=== PATIENT | female | born 1955 | race Caucasian/White ===

== ENCOUNTER 2021-08-08 10:44 | Outpatient (REF) | payer MEDICARE, SELFPAY ==
--- NOTE | ~2021-08-08 | XR_ITS ---
EXAMINATION: X-RAY BILATERAL KNEES CLINICAL INFORMATION: Knee pain COMPARISON: None TECHNIQUE: Each 4 views FINDINGS: Left knee: No fracture or dislocation. Normal alignment. Joint spaces are maintained. Small sclerotic focus in the medial femoral condyle, probable bone island. Small suprapatellar joint fluid. Right knee: No fracture or dislocation. Normal alignment. Joint spaces are maintained. Small suprapatellar joint fluid. Vascular calcification. XR/XR knee LT 4V IMPRESSION: No acute osseous abnormality
--- NOTE | ~2021-08-08 | XR_ITS ---
EXAMINATION: X-RAY BILATERAL KNEES CLINICAL INFORMATION: Knee pain COMPARISON: None TECHNIQUE: Each 4 views FINDINGS: Left knee: No fracture or dislocation. Normal alignment. Joint spaces are maintained. Small sclerotic focus in the medial femoral condyle, probable bone island. Small suprapatellar joint fluid. Right knee: No fracture or dislocation. Normal alignment. Joint spaces are maintained. Small suprapatellar joint fluid. Vascular calcification. XR/XR knee RT 4V IMPRESSION: No acute osseous abnormality
--- NOTE | ~2021-08-08 | MM_ITS ---
EXAMINATION: MM SCREENING DIGITAL BREAST TOMOSYNTHESIS, BILATERAL CLINICAL INFORMATION: Screening. Asymptomatic. The lifetime risk of breast cancer based on the Tyrer-Cuzick Model is 2.1%. COMPARISON: Mammography: August 08, 2021 and studies dating back to January 25, 2018 TECHNIQUE: Digital breast tomosynthesis is performed in both the craniocaudal and mediolateral oblique views along with computer-aided detection (CAD). Synthesized 2D images are generated from the tomosynthesis. FINDINGS: There are scattered areas of fibroglandular density (ACR BI-RADS breast composition Category b). There are no significant masses, abnormal calcifications, or other abnormalities. MM/MM tomosynthesis screening BI IMPRESSION: There are no significant changes from prior study. ASSESSMENT: BI-RADS 1: Negative RECOMMENDATION: Routine annual mammography screening. This patient's information was entered into a reminder system with a target due date for their next mammogram.
--- NOTE | ~2021-08-08 | XR_ITS ---
EXAMINATION: XR HIP, RIGHT CLINICAL INFORMATION: Hip pain COMPARISON: None TECHNIQUE: Pelvis 2 views. Right hip 2 views. FINDINGS: Right hip: Normal alignment. Mild axial joint space loss.. No fracture or dislocation. Pelvis: Normal alignment of the left hip joint, with mild axial joint space loss. No fracture or dislocation. The pelvic ring is intact. SI joints, symphysis pubis intact. No acute pelvic fractures seen. Chronic appearing calcification in the right gluteal soft tissue. Mild degeneration in the visualized lower lumbar spine. XR/XR hip RT min 2V IMPRESSION: Mild bilateral hip joint arthritis.
== END 2021-08-08 10:45 | disposition home or self-care (01) ==
LOC: HO.MAMMO 10:44
PROVIDERS: PCP Nurse Practitioner Adult Health; Visit Provider Nurse Practitioner Adult Health
DX: Z12.31 Encounter for screening mammogram for malignant neoplasm of breast (principal); M25.561 Pain in right knee; M25.562 Pain in left knee; M25.551 Pain in right hip
CPT/HCPCS: 73502; 73564; 77063; 77067

== ENCOUNTER 2022-08-14 10:54 | Outpatient (REF) | payer MEDICARE, SELFPAY ==
--- NOTE | ~2022-08-14 | MM_ITS ---
EXAMINATION: MM SCREENING DIGITAL BREAST TOMOSYNTHESIS, BILATERAL CLINICAL INFORMATION: Screening. Asymptomatic. Previous breast reduction surgery. The lifetime risk of breast cancer based on the Tyrer-Cuzick Model is 2.2%. COMPARISON: Mammography: 08/08/2021 and studies dating back to 01/25/2018. TECHNIQUE: Digital breast tomosynthesis is performed in both the craniocaudal and mediolateral oblique views along with computer-aided detection (CAD). Synthesized 2D images are generated from the tomosynthesis. FINDINGS: There are scattered areas of fibroglandular density (ACR BI-RADS breast composition Category b). This is a baseline study status post bilateral breast reduction surgery. Post-surgical changes seen bilaterally. No suspicious masses appreciated. No suspicious grouping of microcalcifications noted. MM/MM tomosynthesis screening BI IMPRESSION: Post-surgical change bilaterally from breast reduction surgery. ASSESSMENT: BI-RADS 2: Benign. RECOMMENDATION: Routine annual mammography screening. This patient's information was entered into a reminder system with a target due date for their next mammogram.
== END 2022-08-14 10:55 | disposition home or self-care (01) ==
LOC: HO.MAMMO 10:54
PROVIDERS: PCP Internal Medicine; Visit Provider Internal Medicine
DX: Z12.31 Encounter for screening mammogram for malignant neoplasm of breast (principal)
CPT/HCPCS: 77063; 77067

== ENCOUNTER 2023-08-20 10:35 | Outpatient (REF) | payer MEDICARE, SELFPAY ==
--- NOTE | ~2023-08-20 | MM_ITS ---
EXAMINATION: MM SCREENING DIGITAL BREAST TOMOSYNTHESIS, BILATERAL CLINICAL INFORMATION: Screening. Asymptomatic. The patient has history of prior breast reduction. The reduction surgery took place sometime after the 2021 screening mammogram. COMPARISON: Mammography: This study is compared with prior exams dating back to TECHNIQUE: Digital breast tomosynthesis is performed in both the craniocaudal and mediolateral oblique views along with computer-aided detection (CAD). Synthesized 2D images are generated from the tomosynthesis. FINDINGS: There are scattered areas of fibroglandular density (ACR BI-RADS breast composition Category b). Post reduction changes are present in each breast. There is a focal asymmetry in the upper outer quadrant of the left breast at its deep third. Additional mammographic and targeted sonographic imaging of this region is advised. In the right breast, there are no significant masses, abnormal calcifications, or other abnormalities. MM/MM tomosynthesis screening BI IMPRESSION: Focal asymmetry of the left breast warrants additional mammographic and targeted sonographic imaging. No mammographic signs of malignancy right breast. Bilateral post reduction changes. ASSESSMENT: BI-RADS BI-RADS 0 - Incomplete: Needs additional Imaging. RECOMMENDATION: 1. Additional views of the left breast. 2. Targeted ultrasound if warranted after review of the additional views. 3. Radiology department staff will contact the patient for additional imaging. Additional Imaging required This examination should not preclude the clinical evaluation of a suspicious palpable abnormality. This patient's information was entered into a reminder system with a target due date for their next mammogram.
== END 2023-08-20 10:36 | disposition home or self-care (01) ==
LOC: HO.MAMMO 10:35
PROVIDERS: PCP Family Medicine; Visit Provider Family Medicine
DX: Z12.31 Encounter for screening mammogram for malignant neoplasm of breast (principal)
CPT/HCPCS: 77063; 77067

== ENCOUNTER → 2023-08-20 11:00 | Outpatient (BNV) | payer MEDICARE, SELFPAY | PROVIDERS: PCP Family Medicine; Visit Provider Radiology Diagnostic Radiology | DX: Z12.31 Encounter for screening mammogram for malignant neoplasm of breast (principal) | CPT/HCPCS: 77063; 77067 ==

== ENCOUNTER 2023-09-09 14:21 | Outpatient (REF) | payer MEDICARE, SELFPAY ==
--- NOTE | ~2023-09-09 | MM_ITS ---
EXAMINATION: MM DIAGNOSTIC DIGITAL BREAST TOMOSYNTHESIS, LEFT US BREAST LIMITED, LEFT MAMMOGRAPHY: CLINICAL INFORMATION: Callback for focal asymmetry left breast upper outer quadrant, deep one third. Of note, patient has had a 2021 bilateral breast reduction, with revision breast reduction performed 10/07/2022, and six-month later had a fat transfusion in the left outer breast, completely changing breast architecture and baseline appearance. COMPARISON: Mammography: New Baseline 08/20/2023 (revision breast reduction with fat packing laterally), 08/14/2022, 08/08/2021 (with breast reduction occurring before this mammogram), and dating back to 2018. TECHNIQUE: Digital breast tomosynthesis is performed in the following views: 3-D spot compression left CC and left MLO views. Targeted left breast ultrasound was to follow. FINDINGS: There are scattered areas of fibroglandular density (ACR BI-RADS breast composition Category b). Breast parenchyma has taken on a new appearance after the second reduction revision, with dense central posterior scarring in the left breast both in the CC and MLO projections, which persists on spot compression views without significant changes. A few associated benign appearing calcifications are also present, most likely representing dystrophic calcifications. There is expected scarring with distortion in both breasts. This represents a new baseline. ULTRASOUND: CLINICAL INFORMATION: As above. COMPARISON: None TECHNIQUE: Targeted left breast sonographic evaluation was performed using a high frequency linear transducer. Attention was given to the central region of focal architectural distortion. Selected archived documentation. FINDINGS: LEFT BREAST: Spanning the 1:00 to 4:00 regions, approximately 3 cm to 4 cm from the nipple, left breast, there is a region of irregular spiculated hypoechoic echogenicity measuring approximately 4.7 x 1.5 x 3.6 cm, with no associated color Doppler flow. This is the expected appearance of benign scar tissue. Given no increased vascular flow on color Doppler, is not suspicious in the setting of 2 prior surgeries. There are no suspicious masses, abnormal regions of shadowing, or cystic abnormalities. MM/MM tomosynthesis added views L IMPRESSION: There are no findings suspicious for malignancy in the left breast. Area of focal asymmetry/distortion is most consistent with postoperative scarring in the central left breast. This will serve as the patient's new baseline. We will follow this in 6 months with mammography to ensure stability. OVERALL ASSESSMENT: Mammography: BI-RADS 3 - Probably benign finding(s) - 6 month follow-up suggested Ultrasound: BI-RADS 3 - Probably benign finding(s) - 6 month follow-up suggested RECOMMENDATION: 6 Month F/U This patient's information was entered into a reminder system with a target due date for their next mammogram.
== END 2023-09-09 14:22 | disposition home or self-care (01) ==
LOC: HO.MAMMO 14:21
PROVIDERS: PCP Family Medicine; Visit Provider Family Medicine
DX: N64.89 Other specified disorders of breast (principal)
CPT/HCPCS: 76642; 77061; 77065

== ENCOUNTER → 2023-09-09 14:30 | Outpatient (BNV) | payer MEDICARE, SELFPAY | PROVIDERS: PCP Family Medicine; Visit Provider Radiology Diagnostic Radiology | DX: N63.21 Unspecified lump in the left breast, upper outer quadrant (principal) | CPT/HCPCS: 76642; 77065; G0279 ==

== ENCOUNTER 2023-10-14 11:42 | Outpatient (AMB) | payer MEDICARE, SELFPAY ==
--- NOTE | 2023-10-14 11:52 | MHC.PC.OV ---
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 Intake Note: Patient is here as a new patient, would like refills on her meds, Gabapentin 400mg TID, and also Butabital 50/325/40mg Allergies codeine Adverse Reaction (Intermediate, Verified 10/14/23 12:00) stomach pains Medication List - Last Reconciled 10/14/23 by Jayden Webber MD ascorbic acid (vitamin C) 125 mg PO DAILY boron citrate mg PO cod liver oil 1 cap PO DAILY liver extract tabs PO magnesium 120 mg PO TID phytonadione (vitamin K1) 1 mg PO DAILY vitamin E (dl, acetate) 450 mg PO DAILY Tobacco use date assessed: 10/14/23 Fall risk assessment: No Falls in past year Last assessed Fall Risk: 10/14/23 Dental Screening Dental Screen Date: 10/14/23 Did you have a dental visit in the last 12 months?: Yes Did you have a dental problem in the last 6 months where you did not have access to dental care?: No Was dental information given to patient?: 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 ?? Prior PCP:? [facility] [place] [facility] [place] Last office visit/CPE:? Fall 2022, Acute issue(s):? Gabapentin RLS b/L legs 400mg BID H/A's and?has?used?Fioricet?with?good?affect ?? PMHx:?RLS, Headaches. Depression/anxiety - resolved. SurgHx:?Bilateral breast reduction, abdominoplasty, right rotator cuff repair, Chalo-en-Y gastric bypass, hysterectomy, tubal ligation. FHx:? Mom: Bipolar Manic depression, Alzheimers, HTN. Dad: CAD, CT, DM, HTN. Uncle: Brain CA. Cousin GI Cancer. SocHx: Quit Cigs 1995. EtoH rare: 5 gl wine in a yr. No drugs PFSH Medical History (Updated 10/14/23 @ 12:45 by Jayden Webber MD) Other ovarian cyst, right side Surgical History (Updated 10/14/23 @ 12:20 by Keila Wiggins CMA) S/P bilateral breast reduction H/O cystoscopy H/O abdominoplasty S/P right rotator cuff repair History of Chalo-en-Y gastric bypass H/O: hysterectomy H/O tubal ligation Family History (Updated 10/14/23 @ 12:25 by Keila Wiggins CMA) Mother Alzheimers disease Mental health disorder Father Diabetes Amputated right leg Sister Amputation of leg Maternal Grandmother Heart attack Brother Substance abuse in family Mental health disorder Social History Housing: House Patient Tobacco Use Status: Former Tobacco user (quit 30 years ago) e-Cigarette/Vaping Use: Never Used service: No Current occupational status: retired Cognitive needs: No Hearing needs: No Vision needs: Yes (reading glasses) Questionnaire PHQ-9 Over the last 2 weeks, how often have you been bothered by any of the following problems? 1. Little interest or pleasure in doing things: not at all 2. Feeling down, depressed, or hopeless: not at all 3. Trouble falling or staying asleep, or sleeping too much: not at all 4. Feeling tired or having little energy: not at all 5. Poor appetite or overeating: not at all 6. Feeling bad about yourself - or that you are a failure or have let yourself or your family down: not at all 7. Trouble concentrating on things, such as reading the newspaper or watching television: not at all 8. Moving or speaking so slowly that other people could have noticed. Or the opposite - being so fidgety or restless that you have been moving around a lot more than usual: not at all 9. Thoughts that you would be better off or of hurting yourself in some way: not at all Total score: 0 Depression Screening Interpretation: Negative Depression Screening Done: Yes 14373 - PHQ-9 Billing: Yes Source: Developed by Drs. Rafael Bang, Zaira Palacios, Anival Evans and colleagues, with an educational zita from [employer]. Thrive Questionnaire Date Thrive assessed: 10/14/23 I am a: Patient What is your living situation today?: I have a steady place to live Within the past 12 months, did the food you bought not last and you didn't have the money to get more?: Never true Within the past 12 months, did you worry whether your food would run out before you got money to buy more?: Never true Do you have trouble paying for medicines?: No Do you have trouble getting transportation to medical appointments?: No Do you have trouble paying your heating and electricity bill?: No Do you have trouble taking care of your child, family member or friend?: No Do you have trouble with day-to-day activities such as bathing, preparing meals, shopping, managing finances, etc.?: No Are you currently unemployed and looking for a job?: No Are you interested in more education?: No THRIVE Score: 0 AUDIT C Alcohol Use Questionnaire (AUDIT-C) 1. How often do you have a drink containing alcohol?: Monthly or less 2. How many drinks containing alcohol do you have on a typical day when you are drinking?: 1 or 2 3. How often do you have six or more drinks on one occasion?: Never Total Score: 1 YASH-7 AMB Questionnaire YASH-7 Date YASH - 7 assessed: 10/14/23 Feeling nervous, anxious, or on edge: 0 = Not at all Not being able to stop or control worryin = Not at all Worrying too much about different things: 0 = Not at all Trouble relaxin = Not at all Being so restless that it is hard to sit still: 0 = Not at all Becoming easily annoyed or irritable: 0 = Not at all Feeling afraid as if something awful might happen: 0 = Not at all Total YASH-7 score (0-4 normal; 5-9 mild; 10-14 moderate; 15-21 severe): 0 Source: Developed by Drs. Rafael Bang, Zaira Palacios, Anival Evans and colleagues, with an educational zita from [employer]. YASH-7 Assessment Billing YASH-7 Assessment Tool: YASH-7 Assessment 41918 Physical exam (Primary Care) BMI result Body Mass Index 28.3 Depression Screening Interpretation: Negative Assessment and Plan Assessment & Plan (1) Restless leg syndrome: Code(s): G25.81 - Restless legs syndrome Plan: Uses?gabapentin Will?refill?this (2) Chronic headaches: Code(s): R51.9 - Headache, unspecified; G89.29 - Other chronic pain Plan: Has?used?Fioricet?in?the?past?with?good?affect We?can?continue?this.??Advised?patient?that?frequent?long-term?use?can?cause?rebound?headaches?so?she?will?use?intermittently,?only?as?needed. Will?also?check?some?inflammatory?markers (3) Laboratory exam ordered as part of routine general medical examination: Code(s): Z00.00 - Encounter for general adult medical examination without abnormal findings Plan: Check?labs Orders: Orders Comprehensive [place]. Panel Fast Today Z00.00 - Encounter for general adult medical examination without abnormal findings TSH reflex Free T4 Today Z00.00 - Encounter for general adult medical examination without abnormal findings Erythrocyte Sedimentation Rate Today R51.9 - Headache, unspecified Complete Blood Count Auto Diff Today Z00.00 - Encounter for general adult medical examination without abnormal findings Microalbumin, Random (w Creat) Today I10 - Essential (primary) hypertension Lipid Panel Today Z00.00 - Encounter for general adult medical examination without abnormal findings UA and rflx microscopic Today Z00.00 - Encounter for general adult medical examination without abnormal findings CRP High Sensitivity Today R51.9 - Headache, unspecified Medications: New qurawdvjum-sxyjgbktmkecb-noen 50-300-40 mg (Fioricet) #15 caps per 30 days 1 cap PO .Q12 30 days PRN 15 caps 0RF pain gabapentin 400 mg PO TID 30 days 90 caps 1RF Coding Level of Care Code New Pt Level 3 (43018) Diagnoses Restless leg syndrome G25.81 Chronic headaches R51.9; G89.29 Laboratory exam ordered as part of routine general medical examination Z00.00 Additional Codes YASH-7 Assessment Billing - YASH-7 Assessment Tool: YASH-7 Assessment 41243 ([id number])
[2023-10-14 11:56] VITALS: BP 118/62; PULSE 68; O2SAT 97; BMI 28.3
== END 2023-10-14 12:44 | disposition home or self-care (01) ==
PROVIDERS: PCP Family Medicine; Visit Provider Family Medicine
DX: G25.81 Restless legs syndrome (principal); R51.9 Headache, unspecified; G89.29 Other chronic pain
CPT/HCPCS: 99203

== ENCOUNTER 2023-12-29 09:13 | Outpatient (REF) | payer MEDICARE, SELFPAY ==
[2023-12-29 11:11] LABS: MANUAL DIFF FLAG NO
[2023-12-29 11:18] LABS: Basophils Percent Auto 0.8 % (0-2); Eosinophils Absolute Auto 0.2 X10*3/uL (0.0-0.4); Eosinophils Percent Auto 2.8 % (0-4); Hemoglobin 14.6 g/dl (12.0-16.0); Imm Gran Abs Auto 0.02 X10*3/uL (0.00-0.03); Imm Gran Pct Auto 0.4 % (0.0-0.4); Lymphocytes Absolute Auto 2.4 X10*3/uL (1.2-4.9); Lymphocytes Percent Auto 46.3 % (20-40); Mean Corpuscular Hemoglobin 31.8 pg (27.0-33.0); Mean Corpuscular Volume 93.7 fL (80.0-98.0); Monocytes Absolute Auto 0.4 X10*3/uL (0.1-1.2); Monocytes Percent Auto 8.3 % (2-11); Neutrophils Absolute Auto 2.2 x10*3/uL (2.0-8.3); Neutrophils Percent Auto 41.4 % (45-73); Platelet Count 245 X10*3/uL (160-400); Red Blood Count 4.59 X10*6/uL (4.20-5.50); Red Cell Distribution Width 11.9 % (11.0-16.0); White Blood Count 5.3 X10*3/uL (4.8-10.8)
[2023-12-29 12:02] LABS: Alanine Aminotransferase 35 U/L (0-31); Albumin Level 4.5 g/dL (3.5-5.0); Alkaline Phosphatase 97 U/L (39-117); Anion Gap 15 (12-20); Aspartate Amino Transferase 28 U/L (5-31); Bilirubin Total 0.4 mg/dL (0.0-1.0); Blood Urea Nitrogen 12 mg/dL (9-16); Carbon Dioxide 25 mmol/L (22-29); Chloride 106 mmol/L (96-108); Cholesterol 257 mg/dL (<200); Estimated Glomerular Filt Rate > 60; Glucose Fasting 83 mg/dL (60-99); HDL Cholesterol 50 mg/dL (>40); LDL Cholesterol Calculated 163 mg/dL (<100); Potassium 4.1 mmol/L (3.3-5.1); Sodium 142 mmol/L (135-145); Total Protein 7.7 g/dL (6.5-8.0); Triglycerides 222 mg/dL (<150)
[2023-12-29 12:08] LABS: TSH reflex Free T4 2.64 uIU/mL (0.32-4.0)
[2023-12-29 12:10] LABS: Erythrocyte Sedimentation Rate 10 MM/HR (0-20)
[2023-12-29 14:13] LABS: Appearance Urine Cloudy; Color Urine Yellow; Glucose Urine UA Negative (Negative); Leukocyte Esterase Urine Moderate (2+) (Negative); Nitrite Urine Negative (Negative); PH 5.5 (5.0-9.0); Specific Gravity - Urine >= 1.030 (1.005-1.025); UMIC TRIGGER UA YES; Urine Blood Negative (Negative); Urine Ketones Trace mg/dL (Negative); Urine Protein Trace mg/dL (Neg-Trace)
[2023-12-29 14:24] LABS: Bacteria Urine 1+ (None Seen); Hyaline Casts Urine 0-2 /LPF (0-2); RBC Urine 0-2 /HPF (0-2)
[2023-12-29 15:35] LABS: Creatinine Urine 234.06 mg/dL; Microalbum/Creatinine Ratio Ur 8.5 ug/mg cr (<30)
[2023-12-30 08:53] LABS: CRP High Sensitivity 1.2 mg/L
== END 2023-12-29 09:14 | disposition home or self-care (01) ==
LOC: HO.WFDLDS 09:13
PROVIDERS: Visit Provider Family Medicine
DX: Z00.00 Encounter for general adult medical examination without abnormal findings (principal); R51.9 Headache, unspecified; I10 Essential (primary) hypertension
CPT/HCPCS: 36415; 80053; 80061; 81001; 82043; 82570; 84443; 85025; 85652; 86141

== ENCOUNTER 2023-12-31 10:39 | Outpatient (AMB) | payer MEDICARE, SELFPAY ==
--- NOTE | 2023-12-31 10:44 | A.OFFPC_ITS ---
Vital Signs 12/31/23 10:54 Height 5 ft 2 in Weight 157 lb BMI 28.7 BP 102/72 Blood Pressure Location Lt brachial Position Sitting Respiration 12 Pulse 81 Pulse Source Pulse Oximeter Pulse Oximetry (%) 97 Oxygen Delivery Method Room Air Intake Visit Reasons: Extended exam with f/u labs and health maint. Intake Note: Follow up. Needs refill on Fioricet to be changed to 325. The 300 does not work, and ends up needing to take two pills which she doesn't like to do. Also, needs refill on Gabapentin. She would like a three month supply. 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 Allergies codeine Adverse Reaction (Intermediate, Verified 12/31/23 10:52) stomach pains Medication List - Last Reconciled 12/31/23 by Alicia Altman PA-C ascorbic acid (vitamin C) 125 mg PO DAILY boron citrate mg PO cod liver oil 1 cap PO DAILY gabapentin 400 mg PO TID 90 days liver extract tabs PO magnesium 200 mg PO TID phytonadione (vitamin K1) 1 mg PO DAILY vitamin E (dl, acetate) 450 mg PO DAILY Tobacco use date assessed: 10/14/23 Fall risk assessment: No Falls in past year Last assessed Fall Risk: 12/31/23 Dental Screening Dental Screen Date: 12/31/23 Did you have a dental visit in the last 12 months?: Yes Did you have a dental problem in the last 6 months where you did not have access to dental care?: No Was dental information given to patient?: Patient has dentist HPI Extended exam with f/u labs and health maint. HPI Details Pt is a 68 y/o female who presents today for a cpe. CV: bp wnl. labs noted to have hyperlipidemia wants to treat with diet. 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 She is against statins, tried in the past with side effects. Neuro: has a hx of headaches and uses fioricet. RLS treated with gabapentin 400 TID Mammo-UTD Bone density- osteopenia- 2 years ago Cologuard- last year in 2022- wnl [employer]- 2019, states done - s/p total hysterectomy 35 yeras ago. no fam hx of colon cancer PFSH Medical History (Updated 12/31/23 @ 11:43 by Alicia Altman PA-C) Other ovarian cyst, right side Surgical History (Updated 10/14/23 @ 12:20 by Keila Wiggins [facility]) S/P bilateral breast reduction H/O cystoscopy H/O abdominoplasty S/P right rotator cuff repair History of [place]-en-Y gastric bypass H/O: hysterectomy H/O tubal ligation Family History (Updated 10/14/23 @ 12:25 by Keila Wiggins [facility]) Mother Alzheimers disease Mental health disorder Father Diabetes Amputated right leg Sister Amputation of leg Maternal Grandmother Heart attack Brother Substance abuse in family Mental health disorder Social History Housing: House Patient Tobacco Use Status: Former Tobacco user (quit 30 years ago) e-Cigarette/Vaping Use: Never Used service: No Current occupational status: retired Cognitive needs: No Hearing needs: No Vision needs: Yes (reading glasses) Questionnaire PHQ-9 Over the last 2 weeks, how often have you been bothered by any of the following problems? 1. Little interest or pleasure in doing things: not at all 2. Feeling down, depressed, or hopeless: not at all 3. Trouble falling or staying asleep, or sleeping too much: not at all 4. Feeling tired or having little energy: not at all 5. Poor appetite or overeating: not at all 6. Feeling bad about yourself - or that you are a failure or have let yourself or your family down: not at all 7. Trouble concentrating on things, such as reading the newspaper or watching television: not at all 8. Moving or speaking so slowly that other people could have noticed. Or the opposite - being so fidgety or restless that you have been moving around a lot more than usual: not at all 9. Thoughts that you would be better off or of hurting yourself in some way: not at all Total score: 0 Depression Screening Interpretation: Negative Depression Screening Done: Yes 88052 - PHQ-9 Billing: Yes Source: Developed by Drs. Rafael Bang, Zaira Palacios, Anival Evans and colleagues, with an educational zita from [employer]. Thrive Questionnaire Date Thrive assessed: 12/31/23 I am a: Patient What is your living situation today?: I have a steady place to live Within the past 12 months, did the food you bought not last and you didn't have the money to get more?: Never true Within the past 12 months, did you worry whether your food would run out before you got money to buy more?: Never true Do you have trouble paying for medicines?: No Do you have trouble getting transportation to medical appointments?: No Do you have trouble paying your heating and electricity bill?: No Do you have trouble taking care of your child, family member or friend?: No Do you have trouble with day-to-day activities such as bathing, preparing meals, shopping, managing finances, etc.?: No Are you currently unemployed and looking for a job?: No Are you interested in more education?: No Please select the resources that you would like help with: None Currently or been in a relationship where the following occur: No concerns reported THRIVE Score: 0 AUDIT C Alcohol Use Questionnaire (AUDIT-C) 1. How often do you have a drink containing alcohol?: Never Total Score: 0 YASH-7 AMB Questionnaire YASH-7 Date YASH - 7 assessed: 10/14/23 Source: Developed by Drs. Rafael Bang, Zaira Palacios, Anival Evasn and colleagues, with an educational zita from [employer]. Physical exam (Primary Care) Vital Signs: Last Vital Signs Pulse 81 12/31/23 10:54 Resp 12 12/31/23 10:54 BP 102/72 12/31/23 10:54 Pulse Ox 97 12/31/23 10:54 Oxygen Delivery Method Room Air 12/31/23 10:54 BMI result Body Mass Index 28.7 Tobacco/Smoking Status: Tobacco use Status Tobacco use date assessed 10/14/23 12/31/23 10:45 Patient Tobacco Use Status Former Tobacco user (quit 30 12/31/23 10:45 years ago) e-Cigarette/Vaping Use Never Used 12/31/23 10:45 PHQ-9: PHQ-9 Score PHQ-9: Total score 0 12/31/23 11:03 Depression Screening Interpretation: Negative Thrive Assessment: Date of Thrive Assessment Date Thrive assessed 12/31/23 12/31/23 10:45 Currently or been in a relationship where the following occur: No concerns reported Const Orientation/consciousness: patient oriented x3 HENMT Ears: hearing grossly normal bilaterally and TM's normal bilaterally General nose exam: No nasal polyps present Face and sinus: Yes sinuses nontender Mouth: Normal oral and palatal mucosa present Eyes Pupils: Equal, round and reactive pupils present EOM: EOMs intact bilaterally Neck Neck: Yes full ROM and Yes no lymphadenopathy Thyroid: Thyroid normal Chest Chest palpation & inspection: normal inspection of the chest and normal palpation of entire chest wall Breast/axilla inspection: normal inspection of the breasts and normal inspection of the axillae Breast/axilla palpation: normal palpation of the breasts, normal palpation of the axillae and no axillary lymphadenopathy Resp Auscultation: clear to auscultation bilaterally Cardio Rate: regular rate Rhythm: regular rhythm Heart sounds: S1 normal heart sound present and S2 normal heart sound present Peripheral pulses: Peripheral pulses 2+ throughout GI Other: Soft, nontender Auscultation: normal bowel sounds Rectal Exam - Female: deferred General: Yes no CVA tenderness Back/Spine/Pelvis Other: Nontender Back: no CVA tenderness Skin General skin exam: no rashes or lesions noted Neuro General: patient oriented x3, gait normal, CN's II-XI intact bilaterally and deep tendon reflexes 2+ bilaterally Cranial nerves: Yes Equal, round and reactive pupils present Motor exam (neuro): 5/5 motor strength present throughout Sensory Exam: double simultaneous stimulation for sensation normal Coordination: cjegaf-ho-uiry test normal and Romberg test negative Extrem General: Yes normal to inspection and Yes full ROM Psych Affect: normal affect Attitude: cooperative Thought process: Normal thought process present Thought content: Normal thought content present Insight: Good insight present (Psych) Judgement: Good judgement present (Psych) Results Reviewed Results Reviewed: Laboratory Tests 12/29/23 09:15 WBC 5.3 RBC 4.59 Hgb 14.6 Plt Count 245 Sodium 142 Potassium 4.1 Chloride 106 Carbon Dioxide 25 Creatinine 0.76 Estimated GFR > 60 Fasting Glucose 83 Calcium 10.0 AST 28 ALT 35 H Triglycerides 222 H Cholesterol 257 H LDL Cholesterol, Calc 163 H HDL Cholesterol 50 TSH 2.64 Assessment and Plan Assessment & Plan (1) Routine general medical examination at a health care facility: Code(s): Z00.00 - Encounter for general adult medical examination without abnormal findings Plan: reviewed labs reviewed bone density ordered (2) Chronic headaches: Code(s): R51.9 - Headache, unspecified; G89.29 - Other chronic pain Qualifiers: Headache type: unspecified Intractability: not intractable Qualified Code(s): R51.9 - Headache, unspecified; G89.29 - Other chronic pain Plan: has been worked up in the past fioricet ordered (3) Restless leg syndrome: Code(s): G25.81 - Restless legs syndrome Plan: continue gabapentin (4) Osteopenia after menopause: Code(s): M85.80 - Other specified disorders of bone density and structure, unspecified site; Z78.0 - Asymptomatic menopausal state Plan: bone density ordered (5) Dyslipidemia: Code(s): E78.5 - Hyperlipidemia, unspecified Plan: recheck lipids in 6 months or sooner prn. Orders: Orders XR DEXA axial skeleton Today Z78.0 - Asymptomatic menopausal state Medications: New nopmrdimqq-kdaxyjzjznjnf-vmvi 50-325-40 mg 1 tab PO Q6H PRN 30 tabs 5RF pain Changed From gabapentin 400 mg PO TID 30 days 90 caps 1RF To gabapentin 400 mg PO TID 90 days 270 caps 3RF Discontinued onyunzxwbr-gyacgczdgavpn-hfra 50-300-40 mg (Fioricet) #15 caps per 30 days Discontinued Reason: Doctor's Order 1 cap PO .Q12 30 days PRN 15 caps 0RF pain Coding Level of Care Code Est Pt Prev Care >65y(76775) Diagnoses Routine general medical examination at a health care facility Z00.00 Chronic nonintractable headache, unspecified headache type R51.9; G89.29 Headache type: unspecified Intractability: not intractable Restless leg syndrome G25.81 Osteopenia after menopause M85.80; Z78.0 Dyslipidemia E78.5
[2023-12-31 10:54] VITALS: BP 102/72; PULSE 81; RESP 12; O2SAT 97; BMI 28.7
== END 2023-12-31 11:41 | disposition home or self-care (01) ==
PROVIDERS: PCP Family Medicine; Visit Provider Physician Assistant
DX: Z00.00 Encounter for general adult medical examination without abnormal findings (principal); R51.9 Headache, unspecified; G89.29 Other chronic pain; G25.81 Restless legs syndrome; M85.80 Other specified disorders of bone density and structure, unspecified site; Z78.0 Asymptomatic menopausal state; E78.5 Hyperlipidemia, unspecified
CPT/HCPCS: 99397

== ENCOUNTER 2024-01-22 10:24 | Outpatient (REF) | payer MEDICARE, SELFPAY ==
--- NOTE | ~2024-01-22 | MM_ITS ---
EXAMINATION: BONE DENSITOMETRY CLINICAL INDICATION: Menopause. COMPARISON: This is the patient's baseline examination. TECHNIQUE: Using a [employer] DXA System (software version: 13.1) manufactured by [employer], dual-energy x-ray absorptiometry was performed of the lumbar spine and left hip. The images are of good technical quality. Summary results are attached. FINDINGS: LEFT FEMUR, NECK: BMD 0.702 g/cm2, Z-score -0.9, T-score -2.4, osteopenia. LEFT FEMUR, TOTAL: BMD 0.716 g/cm2, Z-score -1.1, T-score -2.3, osteopenia. AP SPINE L1-L4: BMD 1.012 g/cm2, Z-score 0.1, T-score -1.4, osteopenia. IDENTIFIED RISK FACTORS: Early menopause, history of fracture (adult), bilateral oophorectomy, hysterectomy, secondary osteoporosis (partial gastrectomy). HISTORY OF FRACTURE: Wrist, elbow. MEDICATIONS: None listed. MM/XR DEXA axial skeleton IMPRESSION: 1. DIAGNOSIS: Osteopenia based on the lowest T-score value of -2.4 in the femoral neck applying World Health Organization criteria. 2. 10-YEAR FRACTURE RISK PREDICTION, FRAX: Major osteoporotic fracture (clinical spine, forearm, hip or shoulder) 21.7%. Hip fracture 4.9%. 3. Treatment Recommendations: NOF guidelines recommend consideration for treatment in postmenopausal women and men age 50 and older presenting with the following: -A hip or vertebral (clinical or morphometric) fracture. -T-score less than or equal to -2.5 at the femoral neck or spine after appropriate evaluation to exclude secondary causes. -Low bone mass at the hip or spine and a 10-year fracture probability by FRAX of greater than or equal to 3% for hip fracture or greater than or equal to 20% for major osteoporotic fracture based on the [place] adapted WHO algorithm. 4. Other Recommendations: All treatment decisions require clinical judgment and consideration of individual patient factors, including patient preferences, comorbidities, previous drug use, risk factors not captured in the FRAX model (e.g. frailty, falls, vitamin D deficiency, increased bone turnover, interval significant decline in bone density) and possible under or overestimation of fracture risk by FRAX. Additional medical evaluation for secondary cause of low bone mineral density may be appropriate. FUTURE SCAN RECOMMENDATION: People with diagnosed cases of osteoporosis or at high risk for fracture should have regular bone mineral density tests. For patients eligible for Medicare, routine testing is allowed once every 2 years. The testing frequency can be increased to one year for patients who have rapidly progressing disease, those who are receiving or discontinuing medical therapy to restore bone mass, or have additional risk factors. Electronically signed by: Rolando Payne MD 02/01/2024 09:15 AM EDT
== END 2024-01-22 10:25 | disposition home or self-care (01) ==
LOC: HO.MAMMO 10:24
PROVIDERS: PCP Family Medicine; Visit Provider Physician Assistant
DX: Z13.820 Encounter for screening for osteoporosis (principal); Z78.0 Asymptomatic menopausal state
CPT/HCPCS: 77080

== ENCOUNTER 2024-03-08 14:49 | Outpatient (REF) | payer MEDICARE, SELFPAY ==
--- NOTE | ~2024-03-08 | MM_ITS ---
EXAMINATION: MM DIAGNOSTIC DIGITAL BREAST TOMOSYNTHESIS, LEFT CLINICAL INFORMATION: Six-month follow-up for left breast asymmetry. As noted previously, patient had a 2021 bilateral breast reduction, with revision breast reduction performed 10/07/2022, and 6 months later had a fat transfusion in the outer left breast. This is a follow-up from baseline. COMPARISON: Mammography: 09/09/2023, New Baseline 08/20/2023 (revision breast reduction with fat packing laterally), 08/14/2022, 08/08/2021 (with breast reduction occurring before this mammogram), and dating back to 2018. TECHNIQUE: Digital breast tomosynthesis is performed in both the craniocaudal and mediolateral oblique views along with computer-aided detection (CAD). Synthesized 2D images are generated from the tomosynthesis. FINDINGS: There are scattered areas of fibroglandular density (ACR BI-RADS breast composition Category b). Left breast parenchyma is stable, with dense central posterior scarring in the both in the CC and MLO projections.A few associated benign appearing calcifications are also present, most likely representing dystrophic calcifications. There has been mild scar retraction since the previous exam, further supporting benignity. MM/MM tomosynthesis diagnostic LT IMPRESSION: -There are no findings suspicious for malignancy left breast. -Asymmetry central posterior left breast is consistent with scarring, and remains probably benign. -Additional 6 month follow-up mammography recommended to ensure stability, when the patient is due for yearly. ASSESSMENT: BI-RADS BI-RADS 3 - Probably benign finding(s) - 6 month follow-up suggested RECOMMENDATION: 6 Month F/U Results were provided to the patient at time of visit by the technologist. This patient's information was entered into a reminder system with a target due date for their next mammogram. Electronically signed by: Mamadou Beaver MD 03/08/2024 03:28 PM [facility]
== END 2024-03-08 14:50 | disposition home or self-care (01) ==
LOC: HO.MAMMO 14:49
PROVIDERS: PCP Physician Assistant; Visit Provider Family Medicine
DX: R92.2 Inconclusive mammogram (principal)
CPT/HCPCS: 77061; 77065

== ENCOUNTER → 2024-03-08 15:00 | Outpatient (BNV) | payer MEDICARE, SELFPAY | PROVIDERS: PCP Physician Assistant; Visit Provider Radiology Diagnostic Radiology | DX: R92.1 Mammographic calcification found on diagnostic imaging of breast (principal); N65.1 Disproportion of reconstructed breast; R92.322 Mammographic fibroglandular density, left breast | CPT/HCPCS: 77065; G0279 ==

== ENCOUNTER 2024-06-30 10:07 | Outpatient (AMB) | payer MEDICARE, SELFPAY ==
--- NOTE | 2024-06-30 10:17 | MHC.PC.OV ---
Vital Signs 06/30/24 10:19 Height 5 ft 2 in Weight 161 lb BMI 29.4 BP 130/84 Blood Pressure Location Lt brachial Position Sitting Pulse 70 Pulse Source Pulse Oximeter Pulse Oximetry (%) 99 Oxygen Delivery Method Room Air Intake Visit Reasons: follow up Intake Note: Follow up. Allergies codeine Adverse Reaction (Intermediate, Verified 06/30/24 10:18) stomach pains Medication List - Last Reconciled 06/30/24 by Alicia Altman PA-C ascorbic acid (vitamin C) 125 mg PO DAILY boron citrate mg PO rzbjxhpjlp-faikwjskntrku-miwm 50-325-40 mg 1 tab PO Q6H PRN cod liver oil 1 cap PO DAILY gabapentin 400 mg PO TID 90 days liver extract tabs PO magnesium 200 mg PO TID phytonadione (vitamin K1) 1 mg PO DAILY Tobacco use date assessed: 10/14/23 Fall risk assessment: No Falls in past year Last assessed Fall Risk: 06/30/24 Dental Screening Dental Screen Date: 12/31/23 HPI follow up HPI Details Pt is a 68 y/o female who presents today for a follow up. CV: bp wnl. labs noted to have hyperlipidemia wants to treat with diet. 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 She is against statins, tried in the past with side effects. Neuro: has a hx of headaches and uses fioricet. RLS treated with gabapentin 400 TID General: she is S/C bariatric surgery and states that she wants is zepbound or Wegovy. She is fine paying xjz-hl-wemnai for this. She is aware of the risks, benefits and adverse effects. No family history of thyroid malignancy. Mammo-UTD, repeat ordered and booked for a couple months out- had breast asymmetry following breast reduction and believes it is related to that. 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 no fam hx of colon cancer PFSH Medical History (Updated 06/30/24 @ 10:53 by Alicia Altman PA-C) Other ovarian cyst, right side Surgical History (Updated 10/14/23 @ 12:20 by Keila Wiggins [facility]) S/P bilateral breast reduction H/O cystoscopy H/O abdominoplasty S/P right rotator cuff repair History of Chalo-en-Y gastric bypass H/O: hysterectomy H/O tubal ligation Family History (Updated 10/14/23 @ 12:25 by Keila Wiggins [facility]) Mother Alzheimers disease Mental health disorder Father Diabetes Amputated right leg Sister Amputation of leg Maternal Grandmother Heart attack Brother Substance abuse in family Mental health disorder Social History Housing: House Patient Tobacco Use Status: Former Tobacco user (quit 30 years ago) e-Cigarette/Vaping Use: Never Used service: No Current occupational status: retired Cognitive needs: No Hearing needs: No Vision needs: Yes (reading glasses) Questionnaire PHQ-9 Over the last 2 weeks, how often have you been bothered by any of the following problems? 2. Feeling down, depressed, or hopeless: not at all 3. Trouble falling or staying asleep, or sleeping too much: several days 4. Feeling tired or having little energy: several days 5. Poor appetite or overeating: several days 6. Feeling bad about yourself - or that you are a failure or have let yourself or your family down: not at all 7. Trouble concentrating on things, such as reading the newspaper or watching television: not at all 8. Moving or speaking so slowly that other people could have noticed. Or the opposite - being so fidgety or restless that you have been moving around a lot more than usual: not at all 9. Thoughts that you would be better off or of hurting yourself in some way: not at all Depression Screening Interpretation: Negative Depression Screening Done: Yes 21132 - PHQ-9 Billing: Yes Source: Developed by Drs. Rafael Bang, Zaira Palacios, Anival Evans and colleagues, with an educational zita from [employer]. Thrive Questionnaire Date Thrive assessed: 06/23/24 I am a: Patient What is your living situation today?: I have a steady place to live Within the past 12 months, did the food you bought not last and you didn't have the money to get more?: Never true Within the past 12 months, did you worry whether your food would run out before you got money to buy more?: Never true Do you have trouble paying for medicines?: No Do you have trouble getting transportation to medical appointments?: No Do you have trouble paying your heating and electricity bill?: No Do you have trouble taking care of your child, family member or friend?: No Do you have trouble with day-to-day activities such as bathing, preparing meals, shopping, managing finances, etc.?: No Are you currently unemployed and looking for a job?: No Are you interested in more education?: No Please select the resources that you would like help with: None Currently or been in a relationship where the following occur: No concerns reported THRIVE Score: 0 AUDIT C Alcohol Use Questionnaire (AUDIT-C) 1. How often do you have a drink containing alcohol?: Monthly or less 2. How many drinks containing alcohol do you have on a typical day when you are drinking?: 1 or 2 3. How often do you have six or more drinks on one occasion?: Never Total Score: 1 YASH-7 AMB Questionnaire YASH-7 Date YASH - 7 assessed: 10/14/23 Feeling nervous, anxious, or on edge: 0 = Not at all Not being able to stop or control worryin = Not at all Worrying too much about different things: 0 = Not at all Trouble relaxin = Not at all Being so restless that it is hard to sit still: 0 = Not at all Becoming easily annoyed or irritable: 0 = Not at all Feeling afraid as if something awful might happen: 0 = Not at all Total YASH-7 score (0-4 normal; 5-9 mild; 10-14 moderate; 15-21 severe): 0 Source: Developed by Drs. Rafael Bang, Zaira Palacios, Anival Evans and colleagues, with an educational zita from [employer]. YASH-7 Assessment Billing YASH-7 Assessment Tool: YASH-7 Assessment 55337 Physical exam (Primary Care) Vital Signs: Last Vital Signs Pulse 70 06/30/24 10:19 BP 130/84 06/30/24 10:19 Pulse Ox 99 06/30/24 10:19 Oxygen Delivery Method Room Air 06/30/24 10:19 BMI result Body Mass Index 29.4 Tobacco/Smoking Status: Tobacco use Status Tobacco use date assessed 10/14/23 06/30/24 10:17 Patient Tobacco Use Status Former Tobacco user (quit 06/30/24 10:17 years ago) e-Cigarette/Vaping Use Never Used 06/30/24 10:17 Depression Screening Interpretation: Negative Thrive Assessment: Date of Thrive Assessment Date Thrive assessed 06/23/24 06/30/24 10:17 Currently or been in a relationship where the following occur: No concerns reported Const Orientation/consciousness: patient oriented x3 HENMT Ears: hearing grossly normal bilaterally Neck Thyroid: Thyroid normal Lymphatic: no lymphadenopathy noted Resp Auscultation: clear to auscultation bilaterally Cardio Rate: regular rate Rhythm: regular rhythm Heart sounds: S1 normal heart sound present and S2 normal heart sound present GI Inspection: Yes normal to inspection Palpation (GI): Soft to palpation and Other GI palpation findings present (nontender, no cva tenderness) Auscultation: normoactive bowel sounds Rectal Exam - Female: deferred Skin General skin exam: no rashes or lesions noted Neuro General: patient oriented x3, gait normal and no focal motor deficits Results Reviewed Results Reviewed: Laboratory Tests 12/29/23 09:15 WBC 5.3 RBC 4.59 Hgb 14.6 Hct 43.0 Plt Count 245 Sodium 142 Potassium 4.1 Chloride 106 Carbon Dioxide 25 Anion Gap 15 BUN 12 Creatinine 0.76 Estimated GFR > 60 Fasting Glucose 83 Calcium 10.0 Total Bilirubin 0.4 AST 28 ALT 35 H Alkaline Phosphatase 97 Total Protein 7.7 Albumin 4.5 Triglycerides 222 H Cholesterol 257 H LDL Cholesterol, Calc 163 H HDL Cholesterol 50 TSH 2.64 MM/XR DEXA axial skeleton IMPRESSION: 1. DIAGNOSIS: Osteopenia based on the lowest T-score value of -2.4 in the femoral neck applying World Health Organization criteria. MM/MM tomosynthesis diagnostic LT IMPRESSION: -There are no findings suspicious for malignancy left breast. -Asymmetry central posterior left breast is consistent with scarring, and remains probably benign. -Additional 6 month follow-up mammography recommended to ensure stability, when the patient is due for yearly. ASSESSMENT: BI-RADS BI-RADS 3 - Probably benign finding(s) - 6 month follow-up suggested RECOMMENDATION: 6 Month F/U Results were provided to the patient at time of visit by the technologist. This patient's information was entered into a reminder system with a target due date for their next mammogram. Coding Level of Care Code Est Pt Level 4 (70758) Complex EM visit Add On G2211 Diagnoses Dyslipidemia E78.5 Overweight (BMI 25.0-29.9) E66.3 Breast asymmetry N64.89 Chronic nonintractable headache, unspecified headache type R51.9; G89.29 Headache type: unspecified Intractability: not intractable Additional Codes PHQ-9 - 33837 - PHQ-9 Billing: Yes ([id number]) YASH-7 Assessment Billing - YASH-7 Assessment Tool: YASH-7 Assessment 21112 ([id number]) Assessment & Plan Assessment & Plan (1) Dyslipidemia: Code(s): E78.5 - Hyperlipidemia, unspecified Category: Medical Plan: Working on diet. Does not tolerate statins. Not interested in taking this. We will monitor closely. (2) Overweight (BMI 25.0-29.9): Code(s): E66.3 - Overweight Category: Medical Plan: zepbound Ordered. Discussed risks and benefits and adverse effects of this medication including nausea, vomiting, pancreatitis increased risk of thyroid malignancy. We will check labs in a few months. (3) Breast asymmetry: Code(s): N64.89 - Other specified disorders of breast Category: Medical Plan: Has follow up scheduled. (4) Chronic headaches: Code(s): R51.9 - Headache, unspecified; G89.29 - Other chronic pain Category: Medical Qualifiers: Headache type: unspecified Intractability: not intractable Qualified Code(s): R51.9 - Headache, unspecified; G89.29 - Other chronic pain Plan: Medications refilled. Stable Orders: Orders Comprehensive [employer] Panel Fast Today E66.3 - Overweight, E78.5 - Hyperlipidemia, unspecified Lipid Panel Today E66.3 - Overweight, E78.5 - Hyperlipidemia, unspecified Medications: New tirzepatide (weight loss) (Zepbound) 2.5 mg (0.5 mL) subcut QWEEK 4 weeks 2 mL 0RF Refilled gykcjwmbtp-ucbiazjmfthoh-dfoj 50-325-40 mg 1 tab PO Q6H PRN 30 tabs 5RF pain
[2024-06-30 10:19] VITALS: BP 130/84; PULSE 70; O2SAT 99; BMI 29.4
--- OUTSIDE RECORDS SUMMARY | 2024-06-30 12:33 | XMS_ITS ---
Author Organization [facility] Address [address] [place] [address] Care Team Providers Care Counselor [employer] Name Role Phone JOHN GARCIA Primary Care Provider [phone] John Garcia Unavailable [phone] REASON FOR VISIT 3 mo follow up Encounters Encounter Location Date Provider Diagnosis [facility] [address] [place] [address] 04/08/2023 JOHN GARCIA Plan Of Treatment No Information Progress Notes * Maribell FINLEY ODOB:1955 (68 yo F)Acc No.[id number]:04/08/2023 Progress Notes Patient:?Maribell FINLEY Provider:?John Garcia MD :1955???Age:67 Y???Sex:Female D ate:04/08/2023 Address:[address] [place], [place] [id number] Subjective: * Chief Complaints: * ???1. 3 mo follow up. * Medical History:? Objective: * Vitals:? Assessment: Plan: * Treatment: * Billing Information: * Visit Code:? * Procedure Codes:? * Electronic signature of KIESHA GARCIA MD on 06/30/2024 at 12:33 PM EDT Sign off status: Pending * Provider:?John Garcia MD Date:?2022 Generated for Printi ng/Faxing/eTransmitting on:?06/30/2024 12:33 PM EDT
--- OUTSIDE RECORDS SUMMARY | 2024-06-30 12:33 | XMS_ITS ---
Author Organization [facility] Address [address] [place] [address] Care Team Providers Care Hha Name Role Phone JOHN GARCIA Primary Care Provider [phone] John Garcia Unavailable [phone] REASON FOR VISIT Continued Care Encounters Encounter Location Date Provider Diagnosis [facility] [address] [place] [address] 03/20/2023 JOHN GARCIA Plan Of Treatment No Information Progress Notes * TUSHARMaria Teresahy ODOB:1955 (67 yo F)Acc No.[id number]:03/20/2023 Patient:?Maribell Lincoln :1955???Age:67 Y???Sex:Female Address:[address] [place] [address], [address] * true * Date:? Generated for Roberti hilario/Kristy/eTransmitting on:?06/30/2024 12:33 PM EDT
--- OUTSIDE RECORDS SUMMARY | 2024-06-30 12:33 | XMS_ITS | Clinical Summary ---
Author Organization [employer] [facility] Address [address] [place] [address] Care Team Providers Care Machine Operator Transplanter Name Role Phone John Garcia MD Primary Care Provider [phone] Allergies Active Allergy Reactions Criticality Noted Date Comments Codeine 08/23/2018 Medications Medication Sig Dispensed Refills Start Date End Date Status gabapentin (NEURONTIN) 400 MG capsule Take 1 capsule (400 mg total) by mouth 2 (two) times a day. 0 Active butalbital-acetaminoph en-caffeine 50-325-40 MG per tablet TAKE 1 TABLET BY MOUTH TWICE A DAY NEEDED FOR 30 DAYS ORALLY 30 DAYS 0 12/25/2022 Active BORON PO 3 mg daily. 0 10/25/2021 Active vitamin k 100 MCG tablet Take 10 tablets (1,000 mcg total) by mouth daily. 0 10/25/2021 Active Vitamin E 100 units TABS Take 750 mg by mouth daily. 0 10/25/2021 Active Ascorbic Acid (vitamin C) 100 MG tablet Take 1.5 tablets (150 mg total) by mouth 2 (two) times a day. 0 10/25/2021 Active Magnesium 100 MG TABS Take 120 mg by mouth 3 (three) times a day. 0 Active Cod Liver Oil OIL Take 3.5 mL by mouth 3 (three) times a day. 0 Active Active Problems Problem Noted Date Diagnosed Date Anemia associated with nutritional deficiency Family History Medical History Relation Name Comments Coronary artery disease Father Diabetes Father DM COMPLICATION S Dementia Mother Relation Name Status Comments Father Mother Social History Tobacco Use Types Packs/Day Years Used Date Smoking Tobacco: Former Smokeless Tobacco: Never Alcohol Use Standard Drinks/Week Comments No 0 (1 standard drink = 0.6 oz pur e alcohol) Sex and Gender Information Value Date Recorded Sex Assigned at Female 01/16/2023 9:37 AM EDT Gender Identity Not on file Sexual Orientation Not on file Job Start Date Occupation Industry Not on file Not on file Not on file Last Filed Vital Signs Vital Sign Reading Time Taken Comments Blood Pressure 139/70 02/19/2023 1:28 PM EDT Pulse 71 02/19/2023 1:28 PM EDT Temperature 36.2 ??C (97.2 ??F) 02/19/2023 1:28 PM ED T Respiratory Rate 18 02/11/2023 1:30 PM EDT Oxygen Saturation 100% 02/19/2023 1:28 PM EDT Inhaled Oxygen Concentration - - Weight 67.6 kg (149 lb) 01/23/2023 2:08 PM EDT Height 157.5 cm (5' 2 ) 08/24/2018 1:44 PM EDT Body Mass Index 27.25 08/24/2018 1:44 PM EDT Plan of Treatment Health Maintenance Due Date Last Done Comments Hepatitis C Screening 1955 COVID-19 Vaccine (#1) 02/15/1956 Depression Screening 1967 Preventative Health Evaluation 08/15/1973 DTap / Tdap / Td (1 - Tdap) 08/15/1974 Colon Cancer Screening (Colonoscopy) 08/15/2000 Breast Cancer Screening (Mammogram) 08/15/2005 Shingrix-Zoster Vaccine (1 of 2) 08/15/2005 Fall Risk Assessment 08/15/2020 Osteoporosis Screening (DEXA Scan) 08/15/2020 Pneumococcal Vaccine (1 of 1 - PCV) 08/15/2020 Influenza Vaccine (#1) 2023 RSV Adult > 60+ Yrs or Pregn ant (1 - 1-dose 75+ series) 08/15/2030 Hepatitis B Vaccines Aged Out No long er eligible based on patient's age to complete this topic RSV Ped < 20 months Aged Out No longe r eligible based on patient's age to complete this topic Care Teams Machine Operator Transplanter Relationship Specialty Start Date End Date John Garcia MD PCP - General Internal Medicine 08/24/18
--- OUTSIDE RECORDS SUMMARY | 2024-06-30 12:33 | XMS_ITS ---
Author Organization [facility] Address [address] [place] [address] Care Team Providers Care Physical Therapy Aid Name Role Phone JOHN GARCIA Primary Care Provider John Garcia Unavailable [phone] REASON FOR VISIT Transfer to [facility] Encounter Location Date Provider Diagnosis [facility] [address] [place] [address] 04/16/2023 JOHN GARCIA Plan Of Treatment No Information Progress Notes * HASMUKHMaribell MOLINA ODOB:1955 (67 yo F)Acc No.[id number]:04/16/2023 Patient:?Maribell Alford :1955???Age:67 Y???Sex:Female Address:[address] [place] [address], [address] * true * Date:? Generated for Roberti hilario/Kristy/eTransmitting on:?06/30/2024 12:33 PM EDT
== END 2024-06-30 10:57 | disposition home or self-care (01) ==
LOC: HO.HMCFM 10:08
PROVIDERS: PCP Family Medicine; Visit Provider Physician Assistant
DX: E78.5 Hyperlipidemia, unspecified (principal); E66.3 Overweight; N64.89 Other specified disorders of breast; R51.9 Headache, unspecified; G89.29 Other chronic pain

== ENCOUNTER → 2024-06-30 10:07 | Outpatient (BNVA) | payer MEDICARE, SELFPAY | PROVIDERS: PCP Family Medicine; Visit Provider Physician Assistant | DX: E78.5 Hyperlipidemia, unspecified (principal); E66.3 Overweight; N64.89 Other specified disorders of breast; R51.9 Headache, unspecified; G89.29 Other chronic pain | CPT/HCPCS: 96127; 99212 ==

== ENCOUNTER 2024-09-07 10:54 | Outpatient (REF) | payer MEDICARE, SELFPAY ==
--- NOTE | ~2024-09-07 | MM_ITS ---
EXAMINATION: MM DIAGNOSTIC DIGITAL BREAST TOMOSYNTHESIS, BILATERAL CLINICAL INFORMATION: 1 year follow-up for focal asymmetry in the upper outer left breast which correlates with the patient's post reduction mammoplasty changes with an additional revision and fat injection. No sonographic abnormality previously was seen. COMPARISON: Mammography: Comparison is made with relevant prior exams. TECHNIQUE: Digital breast mammography with tomosynthesis is performed in both the craniocaudal and mediolateral oblique views along with computer-aided detection (CAD). FINDINGS: There are scattered areas of fibroglandular density (ACR BI-RADS breast composition Category b). Status post bilateral reduction mammoplasty changes. A focal asymmetry in the upper outer left breast is slightly decreased in size from priors and likely representing post reduction mammoplasty changes with an additional revision and fat injection. No suspicious changes are noted. No suspicious calcifications or other abnormal findings. Results are provided to the patient at time of visit by the technologist. MM/MM tomosynthesis diagnostic BI IMPRESSION: Right: Benign. Left: Focal asymmetry in the upper outer breast is slightly decreased in size and not significantly changed from prior dating back for one year. No prior sonographic abnormality was seen. Recommend follow-up in one year when the patient is due for bilateral mammography to demonstrate 2 years of stability ASSESSMENT: BI-RADS BI-RADS 3 - Probably benign finding(s) - 12 month follow-up suggested RECOMMENDATION: 12 month diagnostic follow up This patient's information was entered into a reminder system with a target due date for their next mammogram. Electronically signed by: Yola Jaimes DO 09/07/2024 11:34 AM EDT
--- OUTSIDE RECORDS SUMMARY | 2024-09-07 12:21 | XMS_ITS | Clinical Summary ---
Author Organization [employer] [facility] Address [address] [place] [address] Care Team Providers Care Entry Specialists Name Role Phone John Garcia MD Primary Care Provider [phone] Allergies Active Allergy Reactions Criticality Noted Date [...] age to complete this topic Care Teams Entry Specialists Relationship Specialty Start Date End Date John Garcia MD PCP - General Internal Medicine 08/24/18
== END 2024-09-07 10:55 | disposition home or self-care (01) ==
LOC: HO.MAMMO 10:54
PROVIDERS: PCP Physician Assistant; Visit Provider Physician Assistant
DX: N64.89 Other specified disorders of breast (principal)
CPT/HCPCS: 77062; 77066

== ENCOUNTER → 2024-09-07 11:00 | Outpatient (BNV) | payer MEDICARE, SELFPAY | PROVIDERS: PCP Physician Assistant; Visit Provider Internal Medicine | DX: R92.8 Other abnormal and inconclusive findings on diagnostic imaging of breast (principal) | CPT/HCPCS: 77066; G0279 ==

== ENCOUNTER 2024-09-29 10:46 | Outpatient (AMB) | payer MEDICARE, SELFPAY ==
--- NOTE | 2024-09-29 10:53 | A.OFFPC_ITS ---
Vital Signs 09/29/24 10:54 Height 5 ft 2 in Weight 148 lb 8 oz BMI 27.2 BP 136/68 Blood Pressure Location Rt brachial Position Sitting Respiration 12 Pulse 82 Pulse Source Pulse Oximeter Temp 98.4 F Temp Source Oral Pulse Oximetry (%) 95 Oxygen Delivery Method Room Air Intake Visit Reasons: weight and med Intake Note: Medication follow up Loan Consultant Required: No Allergies codeine Adverse Reaction (Intermediate, Verified 09/29/24 10:54) stomach pains Medication List - Last Reconciled 09/29/24 by Alicia Altman PA-C ascorbic acid (vitamin C) 125 mg PO DAILY boron citrate mg PO pepkgbdraw-dnpjkzatmsbcv-fule 50-325-40 mg 1 tab PO Q6H PRN cod liver oil 1 cap PO DAILY gabapentin 400 mg PO TID 90 days liver extract tabs PO magnesium 200 mg PO TID phytonadione (vitamin K1) 1 mg PO DAILY tirzepatide (weight loss) (Zepbound) 2.5 mg (0.5 mL) subcut QWEEK 4 weeks Tobacco use date assessed: 09/29/24 Fall risk assessment: No Falls in past year Last assessed Fall Risk: 09/29/24 Dental Screening Dental Screen Date: 09/29/24 Did you have a dental visit in the last 12 months?: Yes Did you have a dental problem in the last 6 months where you did not have access to dental care?: No Was dental information given to patient?: Patient has dentist HPI weight and med HPI Details Pt is a 69 y/o female who presents today for a follow up. CV: bp wnl. labs noted to have hyperlipidemia wants to treat with diet. 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 She is against statins, tried in the past with side effects. Neuro: has a hx of headaches and uses fioricet. RLS treated with gabapentin 400 TID General: she is S/p bariatric surgery. She is doing very well with the Zepbound. Denies any significant side effects. Gets nausea for a day or 2 but states that it is very tolerable. She has lost about 15 lb. Mammo-UTD, 2024. 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 no fam hx of colon cancer PFSH Medical History (Updated 06/30/24 @ 10:53 by Alicia Altman PA-C) Other ovarian cyst, right side Surgical History (Updated 10/14/23 @ 12:20 by Keila Wiggins [facility]) S/P bilateral breast reduction H/O cystoscopy H/O abdominoplasty S/P right rotator cuff repair History of Chalo-en-Y gastric bypass H/O: hysterectomy H/O tubal ligation Family History (Updated 10/14/23 @ 12:25 by Keila Wiggins [facility]) Mother Alzheimers disease Mental health disorder Father Diabetes Amputated right leg Sister Amputation of leg Maternal Grandmother Heart attack Brother Substance abuse in family Mental health disorder Social History Housing: House Patient Tobacco Use Status: Former Tobacco user (quit 30 years ago) e-Cigarette/Vaping Use: Never Used service: No Current occupational status: retired Cognitive needs: No Hearing needs: No Vision needs: Yes (reading glasses) Questionnaire PHQ-9 Over the last 2 weeks, how often have you been bothered by any of the following problems? 1. Little interest or pleasure in doing things: not at all 2. Feeling down, depressed, or hopeless: not at all 3. Trouble falling or staying asleep, or sleeping too much: not at all 4. Feeling tired or having little energy: not at all 5. Poor appetite or overeating: not at all 6. Feeling bad about yourself - or that you are a failure or have let yourself or your family down: not at all 7. Trouble concentrating on things, such as reading the newspaper or watching television: not at all 8. Moving or speaking so slowly that other people could have noticed. Or the opposite - being so fidgety or restless that you have been moving around a lot more than usual: not at all 9. Thoughts that you would be better off or of hurting yourself in some way: not at all Total score: 0 Depression Screening Interpretation: Negative Depression Screening Done: Yes 29814 - PHQ-9 Billing: Yes Source: Developed by Drs. Rafael Bang, Zaira Palacios, Anival Evans and colleagues, with an educational zita from [employer]. Thrive Questionnaire Date Thrive assessed: 06/23/24 I am a: Patient What is your living situation today?: I have a steady place to live Within the past 12 months, did the food you bought not last and you didn't have the money to get more?: Never true Within the past 12 months, did you worry whether your food would run out before you got money to buy more?: Never true Do you have trouble paying for medicines?: No Do you have trouble getting transportation to medical appointments?: No Do you have trouble paying your heating and electricity bill?: No Do you have trouble taking care of your child, family member or friend?: No Do you have trouble with day-to-day activities such as bathing, preparing meals, shopping, managing finances, etc.?: No Are you currently unemployed and looking for a job?: No Are you interested in more education?: No Please select the resources that you would like help with: None Currently or been in a relationship where the following occur: No concerns reported THRIVE Score: 0 AUDIT C Alcohol Use Questionnaire (AUDIT-C) 1. How often do you have a drink containing alcohol?: Monthly or less (glass of wine every three months) 2. How many drinks containing alcohol do you have on a typical day when you are drinking?: 1 or 2 3. How often do you have six or more drinks on one occasion?: Never Total Score: 1 YASH-7 AMB Questionnaire YASH-7 Date YASH - 7 assessed: 10/14/23 Feeling nervous, anxious, or on edge: 0 = Not at all Not being able to stop or control worryin = Not at all Worrying too much about different things: 0 = Not at all Trouble relaxin = Not at all Being so restless that it is hard to sit still: 0 = Not at all Becoming easily annoyed or irritable: 0 = Not at all Feeling afraid as if something awful might happen: 0 = Not at all Total YASH-7 score (0-4 normal; 5-9 mild; 10-14 moderate; 15-21 severe): 0 Source: Developed by Drs. Rafael Bang, Zaira Palacios, Anival Evans and colleagues, with an educational zita from [employer]. YASH-7 Assessment Billing YASH-7 Assessment Tool: YASH-7 Assessment 88102 Physical exam (Primary Care) Vital Signs: Last Vital Signs Temp 98.4 F 09/29/24 10:54 Pulse 82 09/29/24 10:54 Resp 12 09/29/24 10:54 BP 136/68 09/29/24 10:54 Pulse Ox 95 09/29/24 10:54 Oxygen Delivery Method Room Air 09/29/24 10:54 BMI result Body Mass Index 27.2 Tobacco/Smoking Status: Tobacco use Status Tobacco use date assessed 09/29/24 09/29/24 10:55 Patient Tobacco Use Status Former Tobacco user (quit 30 09/29/24 10:55 years ago) e-Cigarette/Vaping Use Never Used 09/29/24 10:55 PHQ-9: PHQ-9 Score PHQ-9: Total score 0 09/29/24 11:04 Depression Screening Interpretation: Negative Thrive Assessment: Date of Thrive Assessment Date Thrive assessed 06/23/24 09/29/24 10:55 Currently or been in a relationship where the following occur: No concerns reported Const Orientation/consciousness: patient oriented x3 HENMT Ears: hearing grossly normal bilaterally Neck Thyroid: Thyroid normal Lymphatic: no lymphadenopathy noted Resp Auscultation: clear to auscultation bilaterally Cardio Rate: regular rate Rhythm: regular rhythm Heart sounds: S1 normal heart sound present and S2 normal heart sound present GI Inspection: Yes normal to inspection Palpation (GI): Soft to palpation and Other GI palpation findings present (nontender, no cva tenderness) Auscultation: normoactive bowel sounds Rectal Exam - Female: deferred Skin General skin exam: no rashes or lesions noted Neuro General: patient oriented x3, gait normal and no focal motor deficits Coding Level of Care Code Est Pt Level 4 (92760) Complex EM visit Add On G2211 Diagnoses Dyslipidemia E78.5 Overweight (BMI 25.0-29.9) E66.3 Restless leg syndrome G25.81 Additional Codes YASH-7 Assessment Billing - YASH-7 Assessment Tool: YASH-7 Assessment 02732 ([id number]) PHQ-9 - 45938 - PHQ-9 Billing: Yes ([id number]) Assessment & Plan Assessment & Plan (1) Dyslipidemia: Code(s): E78.5 - Hyperlipidemia, unspecified Category: Medical Plan: Following a low-fat diet. Not interested in statins. Has trialed in the past. She will recheck labs today (2) Overweight (BMI 25.0-29.9): Code(s): E66.3 - Overweight Category: Medical Plan: Doing well with Zepbound. Denies any significant side effects. We will plan a 6 month follow up. She will follow up sooner if needed (3) Restless leg syndrome: Code(s): G25.81 - Restless legs syndrome Category: Medical Plan: Stable with gabapentin. Continue current regimen
[2024-09-29 10:54] VITALS: BP 136/68; PULSE 82; RESP 12; TEMP 36.9; O2SAT 95; BMI 27.2
--- OUTSIDE RECORDS SUMMARY | 2024-09-29 12:38 | XMS_ITS | Clinical Summary ---
Author Organization [facility] Address [address] [place] [address] Care Team Providers Care Store Clerk Name Role Phone John Garcia MD Primary Care Provider [phone] Allergies Active Allergy Reactions Criticality Noted Date [...] of 1 - PCV) 08/15/2020 Influenza Vaccine (Season Ended) 2024 RSV Adult > 60+ Yrs or Pregn ant (1 - 1-dose 75+ series) 08/15/2030 Hepatitis B Vaccines Aged Out No long er eligible based on patient's age to complete this topic RSV Ped < 20 months Aged Out No longe r eligible based on patient's age to complete this topic Care Teams Store Clerk Relationship Specialty Start Date End Date John Garcia MD PCP - General Internal Medicine 08/24/18
== END 2024-09-29 11:16 | disposition home or self-care (01) ==
LOC: HO.HMCFM 10:47
PROVIDERS: PCP Family Medicine; Visit Provider Physician Assistant
DX: E78.5 Hyperlipidemia, unspecified (principal); E66.3 Overweight; G25.81 Restless legs syndrome

== ENCOUNTER → 2024-09-29 10:46 | Outpatient (BNVA) | payer MEDICARE, SELFPAY | PROVIDERS: PCP Family Medicine; Visit Provider Physician Assistant | DX: E66.3 Overweight (principal); E78.5 Hyperlipidemia, unspecified; R51.9 Headache, unspecified; G25.81 Restless legs syndrome; Z68.27 Body mass index [BMI] 27.0-27.9, adult; Z79.899 Other long term (current) drug therapy; Z98.84 Bariatric surgery status | CPT/HCPCS: 96127; 99212 ==

== ENCOUNTER 2024-09-29 11:21 | Outpatient (REF) | payer MEDICARE, SELFPAY ==
[2024-09-29 14:30] LABS: Appearance Urine Clear; Color Urine Yellow; Glucose Urine UA Negative (Negative); Leukocyte Esterase Urine Trace (Negative); Nitrite Urine Negative (Negative); UMIC TRIGGER UA YES; Urine Blood Negative (Negative); Urine Ketones 15 mg/dL (Negative); Urine Protein Negative (Neg-Trace)
[2024-09-29 14:36] LABS: Alanine Aminotransferase 49 U/L (0-31); Albumin Level 5.1 g/dL (3.5-5.0); Alkaline Phosphatase 101 U/L (39-117); Anion Gap 13 (12-20); Aspartate Amino Transferase 46 U/L (5-31); Bilirubin Total 0.4 mg/dL (0.0-1.0); Blood Urea Nitrogen 8 mg/dL (9-16); Calcium 9.8 mg/dL (8.4-10.2); Carbon Dioxide 28 mmol/L (22-29); Chloride 104 mmol/L (96-108); Cholesterol 234 mg/dL (<200); Estimated Glomerular Filt Rate > 60; Glucose Fasting 90 mg/dL (60-99); HDL Cholesterol 52 mg/dL (>40); LDL Cholesterol Calculated 145 mg/dL (<100); Potassium 4.2 mmol/L (3.3-5.1); Sodium 141 mmol/L (135-145); Total Protein 7.9 g/dL (6.5-8.0); Triglycerides 185 mg/dL (<150)
[2024-09-29 14:39] LABS: Bacteria Urine 1+ (None Seen); Hyaline Casts Urine 0-2 /LPF (0-2); RBC Urine 0-2 /HPF (0-2); WBC Urine 0-5 /HPF (0-5)
== END 2024-09-29 11:22 | disposition home or self-care (01) ==
LOC: HO.WFDLDS 11:21
PROVIDERS: Referring Provider Family Medicine; Visit Provider Physician Assistant
DX: E78.5 Hyperlipidemia, unspecified (principal); E66.3 Overweight
CPT/HCPCS: 36415; 80053; 80061; 81001

== ENCOUNTER 2025-01-11 08:23 | Outpatient (REF) | payer MEDICARE, SELFPAY ==
--- NOTE | ~2025-01-11 | US_ITS ---
EXAMINATION: US COMPLETE ABDOMEN WITH LIVER ELASTOGRAPHY CLINICAL INFORMATION: Elevated LFTs COMPARISON: None available. TECHNIQUE: Real-time imaging of the abdominal viscera. Noninvasive ultrasound liver fibrosis assessment is performed using Jesi ElastPQ point quantification shear wave elastography (pSWE) with a C5-2 MHz transducer. Multiple elastography samples are obtained. FINDINGS: PANCREAS: The visualized pancreatic head and body are normal in appearance. The remainder of the pancreas is obscured from visualization by the overlying bowel gas. ABDOMINAL AORTA: No aortic aneurysm is seen. INFERIOR VENA CAVA: Visualized portions are normal. LIVER: The liver demonstrates normal size, contour and echogenicity. No focal lesion or intrahepatic biliary duct dilatation. The right lobe measures 12.5 cm in length. The left lobe measures 6.4 cm in length. Portal flow is towards the liver (hepatopetal). Shear wave liver elastography median stiffness is 1.82 m/s (reference: normal median stiffness is 1.3 m/s or less). IQR/median stiffness to assess sampling precision is 0.09 (reference: good quality data set is IQR/median stiffness of 0.15 or less). This represents a quality data set. GALLBLADDER: The gallbladder is physiologically distended without evidence of stones, sludge, polyps, wall thickening or pericholecystic fluid. COMMON BILE DUCT: Normal in caliber measuring 0.3 cm in diameter. RIGHT KIDNEY: No hydronephrosis. No renal calculi or focal parenchymal lesions. The kidney measures 9.7 cm in maximum dimension. LEFT KIDNEY: No hydronephrosis. No renal calculi or focal parenchymal lesions. The kidney measures 9.2 cm in maximum dimension. SPLEEN: Unremarkable. The spleen measures 8.6 cm in maximum dimension. FREE FLUID: None seen. US/US abdomen comp w elastography IMPRESSION: 1. Normal-appearing liver, bile ducts, and gallbladder. 2. Liver elastography: Measurements are suggestive of compensated advanced chroniic liver disease but need further test for confirmation. 3. Remainder of the examination appears normal. REFERENCE: Society of Radiologists in Ultrasound Liver Stiffness Thresholds (2019): LIVER STIFFNESS THRESHOLDS: *Liver Stiffness equal or less than 1.3 m/s: High probability of being normal. *Liver Stiffness less than 1.7 m/s: In the absence of other known clinical signs, rules out compensated advanced chronic liver disease. *Liver Stiffness 1.7-2.1 m/s: Suggestive of compensated advanced chronic liver disease but need further test for confirmation. *Liver Stiffness over 2.1 m/s: Rules in compensated advanced chronic liver disease. *Liver Stiffness over 2.4 m/s: Suggestive of clinically significant portal hypertension. QUALITY OF DATA SET: *IQR/Median value equal or less than 0.15 implies a quality data set. *IQR/Median value over 0.15 implies a poor quality data set. SIGNIFICANT CHANGE FROM PRIOR EXAM: Significant change if liver stiffness measurement is 10% or greater from prior exam. OTHER CONSIDERATIONS: The stage of liver fibrosis may be overestimated in the setting of acute hepatitis, liver inflammation, elevated liver function tests, hepatic vascular congestion, obstructive cholestasis, non-fasting state, and infiltrative diseases such as amyloidosis and lymphoma. In some patients with NAFLD, the liver stiffness thresholds for compensated advanced chronic liver disease may be lower. In causes other than viral hepatitis and NAFLD, liver stiffness thresholds are not well established. Electronically signed by: Mamadou Beaver MD 01/11/2025 11:54 AM EDT
--- OUTSIDE RECORDS SUMMARY | 2025-01-11 09:17 | XMS_ITS | Clinical Summary ---
Author Organization [facility] Address [address] [place] [address] Care Team Providers Care Monogram Technician Name Role Phone John Garcia MD Primary Care Provider [phone] Allergies Active Allergy Reactions Criticality Noted Date [...] 71 02/19/2023 1:28 PM EDT Temperature 36.2 C (97.2 F) 02/19/2023 1:28 PM EDT Respiratory Rate 18 02/11/2023 1:30 PM EDT [...] 1 - PCV) 08/15/2020 Influenza Vaccine (#1) 2024 RSV Adult > 60+ Yrs or Pregn ant (1 - 1-dose 75+ series) 08/15/2030 Hepatitis B Vaccines Aged Out No long er eligible based on patient's age to complete this topic RSV Ped < 20 months Aged Out No longe r eligible based on patient's age to complete this topic Care Teams Monogram Technician Relationship Specialty Start Date End Date John Garcia MD PCP - General Internal Medicine 08/24/18
--- OUTSIDE RECORDS SUMMARY | 2025-01-11 09:18 | XMS_ITS | Patient Health Record ---
Author Organization [facility] Address [address] [place] [address] Care Team Providers Care Leak Operator Paraffin Plant Name Role Phone John Garcia Primary Care Provider Souleymane Russo Unavailable [phone] Allergies Allergen (clinical drug ingredient) Drug/Non Drug Allergy documented on EMR Reaction Allergy Type Onset Date Status codeine Codeine heart palptations, sweating, dizziness Drug Allergy Active Reason For Referral No Information Medications Medication SIG (Take, Route, Frequency, Duration) Notes Start Date End Date Status busPIRone HCl 5 MG TAKE 1 TABLET BY ORVILLE TH THREE TIMES A DAY Oral; Duration: 30 Active Mirtazapine 30 MG TAKE 1 TABLET BY ORVILLE TH EVERY DAY Oral; Duration: 90 Active Rizatriptan Benzoate 10 MG DISSOLVE 1 TABLET ON THE TONGUE ONCE A DAY DIRECTED Oral; Duration: 6 Not-Taking traMADol HCl 50 MG (Schedule IV Drug) T SANDER 1 TABLET BY MOUTH 4 TIMES A DAY NEEDED FOR PAIN Oral; Duration: 8 Not-Taking Zolpidem Tartrate 10 MG (Schedule IV Rangel g) TAKE 1 TABLET BY MOUTH AT BEDTIME NEEDED FOR INSOMNIA Oral; Duration: 30 Active Social History Tobacco Use: Social History Observation Description Date Details (start date - stop date) Former Smoker NA - NA Tobacco Use/Smoking Question Answer Notes Are you a: former smoker When did you stop smoking? 30 years ago Additional Findings: Tobacco Non-User Ex-heavy c igarette smoker (20-30/day) Alcohol Screen Question Answer Notes Did you have a drink containing alcohol in the p ast year? No Points 0 Interpretation Negative Tobacco use other than smoking: Question Answer Notes Are you an other tobacco user? No Plan Of Treatment No Information Insurance Providers Payer Name Payer Address Payer Phone Subscriber Number Group Number Insured Name Patient Relationship to Insured Coverage Start Date Coverage End Date [employer] Preferred [address] [place] [address] [id number] HasmukhMaria Teresa molinahy Self - patient is the insured 7 Medical (General) History Medical History History ICD Code Anemia Anxiety disorder osteoarthritis Knee Pain Broken bones Depression Headaches Migraines Osteoporosis Stomach ulcer Measles Mumps Chicken pox Surgical History Surgery Date(Month/Year) hysterectomy 1988 rotator cuff tear repair [id number] gastric bypass 2001
== END 2025-01-11 08:24 | disposition home or self-care (01) ==
LOC: HO.US 08:23
PROVIDERS: PCP Physician Assistant; Visit Provider Physician Assistant
DX: R79.89 Other specified abnormal findings of blood chemistry (principal)
CPT/HCPCS: 76700; 76981

== ENCOUNTER → 2025-01-11 08:31 | Outpatient (BNV) | payer MEDICARE, SELFPAY | PROVIDERS: PCP Physician Assistant; Visit Provider Radiology Diagnostic Radiology | DX: R79.89 Other specified abnormal findings of blood chemistry (principal) | CPT/HCPCS: 76700 ==